=== PATIENT | male | born 1970 | race African-American/Black ===

== ENCOUNTER 2016-09-03 07:01 | Emergency (ER) | payer SELFPAY ==
[~2016-09-03] VITALS: Ht 177.8 cm; Wt 86.4 kg
[2016-09-03] MEDS ORDERED: LIDOCAINE HCL BUFFERED 1% W/EPI 1:100,000 20 ML VIAL INJ ONE (07:45)
[2016-09-03] MEDS ORDERED: POVIDONE-IODINE 10% 120 ML SOLUTION TP ONE (07:45)
[2016-09-03 08:33] VITALS: BP 142/87
== END 2016-09-03 08:35 | disposition home or self-care (01) ==
LOC: EMS 07:03
DX: L02.511 Cutaneous abscess of right hand (principal); A49.02 Methicillin resistant Staphylococcus aureus infection, unspecified site
CPT/HCPCS: 10060; 99283; J3490

== ENCOUNTER 2016-09-08 14:57 | Emergency (ER) | payer SELFPAY ==
[~2016-09-08] VITALS: Ht 177.8 cm; Wt 86.4 kg
[2016-09-08] MEDS ORDERED: DOXYCYCLINE 100 MG CAPSULE PO ONE (19:00)
[2016-09-08 19:17] VITALS: BP 128/73
== END 2016-09-08 19:21 | disposition home or self-care (01) ==
LOC: EMS 14:57
DX: Z48.00 Encounter for change or removal of nonsurgical wound dressing (principal); L03.113 Cellulitis of right upper limb
CPT/HCPCS: 99283

== ENCOUNTER 2017-01-31 03:55 | Emergency (ER) | payer SELFPAY ==
[~2017-01-31] VITALS: Ht 177.8 cm; Wt 81.8 kg
[2017-01-31] MEDS ORDERED: LIDOCAINE HCL 2% 5 ML JELLY TP ONE (04:45)
[2017-01-31] MEDS ORDERED: CEFTAROLINE 600 MG/D5W 250 ML IV ONE (04:45)
[2017-01-31] MEDS ORDERED: KETOROLAC TROMETHAMINE 30 MG/ML VIAL IVP ONE (04:45)
[2017-01-31 06:09] VITALS: BP 131/77
== END 2017-01-31 07:08 | disposition home or self-care (01) ==
LOC: EMS 03:56
DX: L03.114 Cellulitis of left upper limb (principal); S61.452A Open bite of left hand, initial encounter; W50.3XXA Accidental bite by another person, initial encounter; Y93.89 Activity, other specified; Y92.89 Other specified places as the place of occurrence of the external cause; Y99.8 Other external cause status
CPT/HCPCS: 96365; 96375; 99284; J0712; J1885

== ENCOUNTER 2017-09-17 00:53 | Emergency (ER) | payer SELFPAY ==
[~2017-09-17] VITALS: Ht 177.8 cm; Wt 81.8 kg
[2017-09-17] MEDS ORDERED: KETOROLAC TROMETHAMINE 30 MG/ML VIAL IM ONE (02:15)
[2017-09-17] MEDS ORDERED: LIDOCAINE HCL 1% 10 ML VIAL INJ ONE (03:00)
[2017-09-17 03:05] VITALS: BP 143/86
== END 2017-09-17 03:18 | disposition home or self-care (01) ==
LOC: EMS 00:54
DX: S63.283A Dislocation of proximal interphalangeal joint of left middle finger, initial encounter (principal); W18.39XA Other fall on same level, initial encounter; Y93.89 Activity, other specified; Y92.89 Other specified places as the place of occurrence of the external cause; Y99.8 Other external cause status
CPT/HCPCS: 26770; 73140; 96372; 99284; J1885; J3490

== ENCOUNTER 2017-11-09 02:08 | Emergency (ER) | payer SELFPAY ==
[~2017-11-09] VITALS: Ht 177.8 cm; Wt 79.5 kg
[2017-11-09] MEDS ORDERED: ACETAMINOPHEN/CODEINE 300-30 MG TABLET PO ONE (04:15)
[2017-11-09] MEDS ORDERED: METHOCARBAMOL 750 MG TABLET PO ONE (04:15)
[2017-11-09] MEDS ORDERED: IBUPROFEN 600 MG TABLET PO ONE (04:15)
[2017-11-09 05:09] VITALS: BP 148/78
== END 2017-11-09 05:10 | disposition home or self-care (01) ==
LOC: EMS 02:09
DX: M54.42 Lumbago with sciatica, left side (principal)
CPT/HCPCS: 99284

== ENCOUNTER 2018-05-17 15:47 | Emergency (ER) | payer MEDICAID ==
[~2018-05-17] VITALS: Ht 177.8 cm; Wt 86.0 kg
[2018-05-17] MEDS: HYDROCODONE/ACETAMINOPHEN 5-325 MG TABLET PO ONE (16:41)
[2018-05-17] MEDS: IBUPROFEN 800 MG TABLET PO ONE (16:41)
[2018-05-17 18:37] VITALS: BP 141/84
== END 2018-05-17 18:51 | disposition home or self-care (01) ==
LOC: EMS 15:48
DX: S82.62XA Displaced fracture of lateral malleolus of left fibula, initial encounter for closed fracture (principal); W01.0XXA Fall on same level from slipping, tripping and stumbling without subsequent striking against object, initial encounter; Y93.01 Activity, walking, marching and hiking; Y92.89 Other specified places as the place of occurrence of the external cause; Y99.8 Other external cause status
CPT/HCPCS: 29515

== ENCOUNTER 2019-04-11 22:45 | Emergency (ER) | payer SELFPAY ==
[~2019-04-11] VITALS: Ht 177.8 cm; Wt 79.5 kg
[2019-04-12] VITALS: BP 139/94
[2019-04-12] MEDS ORDERED: IBUPROFEN 600 MG TABLET PO ONE
[2019-04-12] MEDS ORDERED: ACETAMINOPHEN 500 MG TABLET PO ONE
[2019-04-12] MEDS ORDERED: DOXYCYCLINE HYCLATE 100 MG CAPSULE PO ONE
[2019-04-12] MEDS ORDERED: BACITRACIN 0.9 GM PACKET OINTMENT TP ONE
== END 2019-04-12 00:35 | disposition home or self-care (01) ==
LOC: EMS 22:46
DX: L03.311 Cellulitis of abdominal wall (principal); L25.9 Unspecified contact dermatitis, unspecified cause; F17.210 Nicotine dependence, cigarettes, uncomplicated; F11.90 Opioid use, unspecified, uncomplicated; F15.90 Other stimulant use, unspecified, uncomplicated; F16.90 Hallucinogen use, unspecified, uncomplicated
CPT/HCPCS: 99406

== ENCOUNTER 2019-07-10 00:38 | Emergency (ER) | payer MEDICAID ==
[~2019-07-10] VITALS: Ht 177.8 cm; Wt 81.8 kg
[2019-07-10 01:18] VITALS: BP 135/74
[2019-07-10] MEDS ORDERED: BACITRACIN 0.9 GM PACKET OINTMENT TP ONE (01:30)
== END 2019-07-10 02:20 | disposition home or self-care (01) ==
LOC: EMS 00:39
DX: T73.0XXA Starvation, initial encounter (principal); S10.11XA Abrasion of throat, initial encounter; R23.4 Changes in skin texture; F17.210 Nicotine dependence, cigarettes, uncomplicated; F15.90 Other stimulant use, unspecified, uncomplicated; Z59.0 Homelessness; X58.XXXA Exposure to other specified factors, initial encounter; Y93.89 Activity, other specified; Y92.89 Other specified places as the place of occurrence of the external cause; Y99.8 Other external cause status
CPT/HCPCS: 99406

== ENCOUNTER 2019-08-30 03:51 | Emergency (ER) | payer MEDICAID ==
[~2019-08-30] VITALS: Ht 177.8 cm; Wt 81.8 kg
[2019-08-30] MEDS ORDERED: KETOROLAC TROMETHAMINE 30 MG/ML VIAL IM ONE (06:30)
[2019-08-30 07:02] VITALS: BP 143/82
== END 2019-08-30 07:11 | disposition home or self-care (01) ==
LOC: EMS 03:51
DX: M54.12 Radiculopathy, cervical region (principal); F17.210 Nicotine dependence, cigarettes, uncomplicated; F11.90 Opioid use, unspecified, uncomplicated; F15.90 Other stimulant use, unspecified, uncomplicated
CPT/HCPCS: 96372; 99283; J1885

== ENCOUNTER 2019-09-07 01:46 | Emergency (ER) | payer MEDICAID ==
[~2019-09-07] VITALS: Ht 172.7 cm; Wt 81.8 kg
[2019-09-07] MEDS ORDERED: LIDOCAINE 5% TRANSDERMAL PATCH TD ONE (02:15)
[2019-09-07] MEDS ORDERED: CLINDAMYCIN HCL 150 MG CAPSULE PO ONE (02:15)
[2019-09-07] MEDS ORDERED: KETOROLAC TROMETHAMINE 30 MG/ML VIAL IM ONE (02:15)
[2019-09-07] MEDS ORDERED: ACETAMINOPHEN 500 MG TABLET PO ONE (02:15)
[2019-09-07 02:45] VITALS: BP 133/77
== END 2019-09-07 02:55 | disposition home or self-care (01) ==
LOC: EMS 01:46
DX: K08.89 Other specified disorders of teeth and supporting structures (principal); M54.12 Radiculopathy, cervical region; F17.210 Nicotine dependence, cigarettes, uncomplicated; F11.90 Opioid use, unspecified, uncomplicated; F15.90 Other stimulant use, unspecified, uncomplicated; F14.90 Cocaine use, unspecified, uncomplicated; F16.90 Hallucinogen use, unspecified, uncomplicated
CPT/HCPCS: 96372; 99284; J1885

== ENCOUNTER 2020-01-25 20:02 | Emergency (ER) | payer MEDICAID, OTHER ==
[~2020-01-25] VITALS: Ht 172.7 cm; Wt 160.0 kg
[2020-01-25 20:32] LABS: GLUCOSE,POINT OF CARE 113 MG/DL (70-110)
[2020-01-25] MEDS ORDERED: BACITRACIN 0.9 GM PACKET OINTMENT TP ONE (20:45)
[2020-01-25] MEDS ORDERED: PERTUSS(ACELL),DIPH,TET VAC/PF 0.5 ML VIAL IM ONE (20:45)
[2020-01-25] MEDS ORDERED: LIDOCAINE 1% 10 ML VIAL INJ ONE (20:45)
[2020-01-25 21:04] LABS: BASOPHILS % (AUTO) 0.9 % (0.0-2.0); EOSINOPHILS % (AUTO) 6.7 % (1.0-6.0); HEMATOCRIT 37.2 % (41-53); HEMOGLOBIN 12.7 g/dL (13.5-17.5); LYMPHOCYTES # (AUTO) 0.8 K/uL (1.0-4.8); LYMPHOCYTES % (AUTO) 20.1 % (22.0-44.0); MEAN CORPUSCULAR HEMOGLOBIN 34.5 pg (26.0-34.0); MEAN CORPUSCULAR HGB CONC 34.1 G/dL (31.0-37.0); MEAN CORPUSCULAR VOLUME 101 fL (80-100); MONOCYTES # (AUTO) 0.4 K/uL (0.1-1.0); MONOCYTES % (AUTO) 10.2 % (2.0-9.0); NEUTROPHILS # (AUTO) 2.4 K/uL (1.8-7.7); NEUTROPHILS % (AUTO) 62.1 % (40.0-70.0); PLATELET COUNT (AUTO) 184 K/uL (150-450); RED BLOOD CELL COUNT(AUTO) 3.67 MIL/uL (4.50-5.90); RED CELL DISTRIBUTION WIDTH 14.2 % (11.5-14.5)
[2020-01-25 21:20] LABS: ANION GAP 14 mmol/L (8-16); CALCIUM, TOTAL 8.4 mg/dL (8.8-10.5); CARBON DIOXIDE 23 mmol/L (22-29); CHLORIDE 110 mmol/L (98-107); CREATININE 1.24 mg/dL (0.60-1.30); GLOMERULAR FILTR. RATE CALC > 60 mL/min (>60); GLUCOSE,RANDOM 108 mg/dL (70-110); POTASSIUM 3.7 mmol/L (3.5-5.1); SODIUM SERUM 147 mmol/L (136-145); UREA NITROGEN, BLOOD 17 mg/dL (7-18)
[2020-01-25 21:34] LABS: ALANINE AMINOTRANSFERASE 52 U/L (12-78); ALBUMIN 3.3 g/dL (3.4-5.0); ALKALINE PHOSPHATASE 76 U/L (46-116); ASPARTATE AMINOTRANSFERASE 69 U/L (15-37); BILIRUBIN,TOTAL 0.4 mg/dL (0.1-1.0); TOTAL PROTEIN, SERUM 7.1 g/dL (6.4-8.2)
[2020-01-25 23:37] LABS: AMPHET/METH SCREEN,URINE NEGATIVE (NEGATIVE); BARBITURATE SCREEN, URINE NEGATIVE (NEGATIVE); BENZODIAZEPINES SCREEN,URINE NEGATIVE (NEGATIVE); CANNABINOID SCREEN,URINE POSITIVE (NEGATIVE); COCAINE SCREEN,URINE POSITIVE (NEGATIVE); METHADONE SCREEN, URINE NEGATIVE (NEGATIVE); OPIATE SCREEN,URINE NEGATIVE (NEGATIVE)
[2020-01-25 23:38] LABS: PHENCYCLIDINE SCREEN,URINE POSITIVE (NEGATIVE)
[2020-01-26 04:28] VITALS: BP 127/88
== END 2020-01-26 04:40 | disposition home or self-care (01) ==
LOC: EMS 20:02
DX: S01.81XA Laceration without foreign body of other part of head, initial encounter (principal); S52.502A Unspecified fracture of the lower end of left radius, initial encounter for closed fracture; S80.212A Abrasion, left knee, initial encounter; F10.129 Alcohol abuse with intoxication, unspecified; F14.10 Cocaine abuse, uncomplicated; R41.82 Altered mental status, unspecified; F17.210 Nicotine dependence, cigarettes, uncomplicated; F13.10 Sedative, hypnotic or anxiolytic abuse, uncomplicated; Y04.2XXA Assault by strike against or bumped into by another person, initial encounter; Y93.89 Activity, other specified; Y92.89 Other specified places as the place of occurrence of the external cause; Y99.8 Other external cause status
CPT/HCPCS: 12014; 29125; 36415; 70450; 70486; 71045; 72125; 73110; 73130; 73562; 80053; 80307; 82962; 85025; 90471; 90715; 99285; 99406; G0480; J3490; 51701

== ENCOUNTER 2020-02-06 19:41 | Emergency (ER) | payer OTHER ==
[~2020-02-06] VITALS: Ht 177.8 cm; Wt 175.0 kg
[2020-02-06 20:57] VITALS: BP 124/66
== END 2020-02-06 20:38 | disposition home or self-care (01) ==
LOC: EMS 19:43
DX: S62.102D Fracture of unspecified carpal bone, left wrist, subsequent encounter for fracture with routine healing (principal); F14.90 Cocaine use, unspecified, uncomplicated; F15.90 Other stimulant use, unspecified, uncomplicated; F11.90 Opioid use, unspecified, uncomplicated; F17.210 Nicotine dependence, cigarettes, uncomplicated; X58.XXXD Exposure to other specified factors, subsequent encounter
CPT/HCPCS: 99406; Z7502

== ENCOUNTER 2020-04-21 12:56 | Emergency (ER) | payer OTHER ==
[~2020-04-21] VITALS: Ht 175.3 cm; Wt 81.8 kg
[2020-04-21 13:00] VITALS: BP 114/72
[2020-04-21] MEDS ORDERED: BACITRACIN 0.9 GM PACKET OINTMENT TP ONE (14:15)
[2020-04-21] MEDS ORDERED: PERTUSS(ACELL),DIPH,TET VAC/PF 0.5 ML VIAL IM ONE (14:15)
== END 2020-04-21 14:15 | disposition home or self-care (01) ==
LOC: EMS 12:57
DX: S52.502A Unspecified fracture of the lower end of left radius, initial encounter for closed fracture (principal); S61.412A Laceration without foreign body of left hand, initial encounter; F17.210 Nicotine dependence, cigarettes, uncomplicated; F12.90 Cannabis use, unspecified, uncomplicated; Z59.0 Homelessness; Y04.0XXA Assault by unarmed brawl or fight, initial encounter; Y93.89 Activity, other specified; Y92.89 Other specified places as the place of occurrence of the external cause; Y99.8 Other external cause status
CPT/HCPCS: 90471; 90715

== ENCOUNTER 2020-06-14 16:10 | Emergency (ER) | payer OTHER ==
[~2020-06-14] VITALS: Ht 177.8 cm; Wt 81.8 kg
[2020-06-14 19:17] VITALS: BP 119/79
== END 2020-06-14 19:30 | disposition home or self-care (01) ==
LOC: EMS 16:10
DX: M25.532 Pain in left wrist (principal); G89.29 Other chronic pain; F17.210 Nicotine dependence, cigarettes, uncomplicated; F12.90 Cannabis use, unspecified, uncomplicated; F19.90 Other psychoactive substance use, unspecified, uncomplicated
CPT/HCPCS: 99406

== ENCOUNTER 2020-10-31 14:20 | Emergency (ER) | payer OTHER ==
[~2020-10-31] VITALS: Ht 177.8 cm; Wt 79.5 kg
[2020-10-31] MEDS ORDERED: IBUPROFEN 600 MG TABLET PO ONE (15:15)
[2020-10-31 16:21] VITALS: BP 139/85
== END 2020-10-31 16:22 | disposition home or self-care (01) ==
LOC: EMS 14:20
DX: S63.502A Unspecified sprain of left wrist, initial encounter (principal); F17.210 Nicotine dependence, cigarettes, uncomplicated; F12.90 Cannabis use, unspecified, uncomplicated; F19.90 Other psychoactive substance use, unspecified, uncomplicated; W19.XXXA Unspecified fall, initial encounter; Y93.89 Activity, other specified; Y92.89 Other specified places as the place of occurrence of the external cause; Y99.8 Other external cause status
CPT/HCPCS: 99283

== ENCOUNTER 2022-02-01 17:33 | Emergency (ER) | payer OTHER ==
[~2022-02-01] VITALS: Ht 177.8 cm; Wt 81.8 kg
[2022-02-01] MEDS ORDERED: ACETAMINOPHEN 325 MG TABLET PO ONE (18:45)
[2022-02-01 19:22] VITALS: BP 132/74
== END 2022-02-01 19:37 | disposition home or self-care (01) ==
LOC: EMS 17:34
DX: G89.29 Other chronic pain (principal); M79.604 Pain in right leg; M79.605 Pain in left leg; F12.90 Cannabis use, unspecified, uncomplicated; F15.90 Other stimulant use, unspecified, uncomplicated; F17.210 Nicotine dependence, cigarettes, uncomplicated
CPT/HCPCS: 99282; Z7502; Z7610

== ENCOUNTER 2025-04-13 18:59 | Emergency (ER) | payer OTHER ==
[~2025-04-13] VITALS: Ht 177.8 cm; Wt 86.4 kg
[2025-04-13 19:03] VITALS: BP 144/94; PULSE 94; RESP 18; TEMP 97.9; O2SAT 99
[2025-04-13] MEDS: AMOX TR/POT CLAV 875 MG/125 MG TABLET PO ONE (20:05)
[2025-04-13] MEDS: HYDROCODONE/ACETAMINOPHEN 5-325 MG TABLET PO ONE (20:05)
[2025-04-13] MEDS: PERTUSS(ACELL),DIPH,TET/PF 0.5 ML SYRINGE [ADULT] IM. ONE (20:13)
[2025-04-13] MEDS ORDERED: AMOX-457 PO (20:20)
== END 2025-04-13 21:34 | disposition home or self-care (01) ==
LOC: EMS 19:00
DX: S61.451A Open bite of right hand, initial encounter (principal); F12.90 Cannabis use, unspecified, uncomplicated; F15.90 Other stimulant use, unspecified, uncomplicated; F17.210 Nicotine dependence, cigarettes, uncomplicated; F10.90 Alcohol use, unspecified, uncomplicated; W54.0XXA Bitten by dog, initial encounter; Y93.89 Activity, other specified; Y92.89 Other specified places as the place of occurrence of the external cause; Y99.8 Other external cause status
CPT/HCPCS: 90471; 90715; 99283

== ENCOUNTER 2025-04-28 02:19 | Emergency (ER) | payer OTHER ==
[~2025-04-28] VITALS: Ht 177.8 cm; Wt 86.0 kg
[~2025-04-28 02:19] MED LIST: AMOX-457 PO
[2025-04-28 02:25] VITALS: BP 110/63; PULSE 94; RESP 18; TEMP 98.4; O2SAT 98
[2025-04-28] MEDS: IBUPROFEN 400 MG TABLET PO ONE (04:36)
[2025-04-28] MEDS: ACETAMINOPHEN 500 MG TABLET PO ONE (04:37)
== END 2025-04-28 04:46 | disposition home or self-care (01) ==
LOC: EMS 02:20
DX: S61.451D Open bite of right hand, subsequent encounter (principal); F12.90 Cannabis use, unspecified, uncomplicated; F17.210 Nicotine dependence, cigarettes, uncomplicated; F15.90 Other stimulant use, unspecified, uncomplicated; W54.0XXD Bitten by dog, subsequent encounter
CPT/HCPCS: 99282; Z7502; Z7610